=== PATIENT | male | born 1960 | race Caucasian/White ===

== ENCOUNTER 2016-07-05 12:20 | Emergency (ER) | payer BC ==
[2016-07-05 12:20] VITALS: BMI 43.5
[2016-07-05 12:39] VITALS: TEMP 98.6
--- NOTE | 2016-07-05 13:40 | ED PDOC ---
Arrival/HPI - General Chief Complaint: Back Pain Time Seen by Provider: 07/05/16 12:46 Historian: Patient - History of Present Illness Narrative History of Present Illness (Text): 07/05/16 13:38 55 year old male presents to the emergency department with rib and sternal pain on palpation after fall 2 weeks ago. Patient states he fell forward in the snow. He reports he was seen at [facility] [place] but has not followed up with his PMD. States pain is worst with palpation. Denies exertional pain, denies cp/sob/lombardi. Past Medical History - Infectious Disease Hx of Infectious Diseases: None - Tetanus Immunization Tetanus Immunization: Unknown - Cardiac Hx Cardiac Disorders: Yes Hx Hypertension: Yes - Pulmonary Hx Respiratory Disorders: Yes Hx Chronic Obstructive Pulmonary Disease (COPD): Yes - Neurological Hx Neurological Disorder: No - HEENT Hx HEENT Disorder: No - Renal Hx Renal Disorder: No - Endocrine/Metabolic Hx Endocrine Disorders: No - Hematological/Oncological Hx Blood Disorders: No - Integumentary Hx Dermatological Disorder: Yes (TATTOOS) - Musculoskeletal/Rheumatological Hx Musculoskeletal Disorders: Yes Hx Arthritis: Yes - Gastrointestinal Hx Gastrointestinal Disorders: Yes Other/Comment: CONSTIPATION - Genitourinary/Gynecological Hx Genitourinary Disorders: No - Psychiatric Hx Psychophysiologic Disorder: Yes Hx Anxiety: Yes Hx Depression: Yes Hx Substance Use: No (pt denies) Other/Comment: OBESITY - Surgical History Hx Appendectomy: Yes Other/Comment: pituitary tumor removal - Anesthesia Hx Anesthesia: Yes Hx Anesthesia Reactions: No Hx Malignant Hyperthermia: No - Suicidal Assessment Feels Threatened In Home Enviroment: No Family/Social History Smoking Status: Current Some Days Smoker Hx Alcohol Use: No (pt denies) Hx Substance Use: No (pt denies) Hx Substance Use Treatment: No Allergies/Home Meds Allergies/Adverse Reactions: Allergies No Known Allergies Allergy (Verified 07/05/16 12:39) Home Medications: Home Meds Medication Instructions Recorded Confirmed oxyCODONE [oxyCONTIN Extended 80 mg PO TID 06/11/16 07/05/16 Release Tab] Review of Systems - Physician Review All systems were reviewed & negative as marked: Yes Physical Exam - Physical Exam Narrative Physical Exam (Text): - Review of Systems Constitutional: Normal. absent: Fatigue, Weight Change, Fevers Eyes: Normal ENT: denies sore throat, denies tristhmus Respiratory: Normal. absent: SOB, Cough, Sputum Cardiovascular: absent: Chest Pain, Palpitations, Syncope Gastrointestinal: Normal. absent: Abdominal Pain, Diarrhea, Nausea, Vomiting Genitourinary: Normal. absent: Dysuria, Frequency, Hematuria Musculoskeletal: Normal. absent: Arthralgias, Back Pain, Neck Pain Skin: no rashes, no erythema Neurological: absent: Focal Weakness Endocrine: Normal Hemo/Lymphatic: Normal Psychiatric: No suicidal or homicidal ideations Physical exam Patient appears age appropriate in no distress, speaking full sentences without difficulty - Systems Exam Head: Present: Atraumatic, Normocephalic Pupils: Present: PERRL Extroacular Muscles: Present: EOMI Conjunctiva: Present: Normal Mouth: Present: Moist Mucous Membranes Neck: Present: Normal Range of Motion. No: MIDLINE TENDERNESS, Paraspinal Tenderness Respiratory/Chest: Present: Clear to Auscultation, Good Air Exchange. Sternal and ant. rib point tenderness. pain quality reproduced with palpation. No: Respiratory Distress, Accessory Muscle Use, Tachypneic Cardiovascular: Present: Regular Rate and Rhythm, Normal S1, S2, Peripheal Pulses Present. No: Murmurs Abdomen: Present: Normal Bowel Sounds. No: Tenderness, Distention, Peritoneal Signs, Rebound, Guarding Back: Present: Normal Inspection. No: Midline Tenderness, Paraspinal Tenderness Upper Extremity: Present: Normal Inspection. No: Cyanosis, Edema Lower Extremity: Present: Normal Inspection. No: Edema Neurological: Present: GCS=15, Speech Normal, cranial nerves II through XII fully intact with no cerebellar abnormality, neurosensory fully intact. No focal neurological deficits. Skin: Present: Warm, Dry, Normal Color. No: Rashes Lymphatic: Present: OX3, NI, NC Psychiatric: Present: Alert, Oriented x 3, Normal Insight, Normal Concentration Vital Signs Reviewed: Yes Vital Signs Temp Pulse Resp BP Pulse Ox 07/05/16 12:35 98.6 F 105 H 16 113/84 96 Temperature: Afebrile Blood Pressure: Normal Pulse: Tachycardic Respiratory Rate: Normal Appearance: Positive for: Well-Appearing Pain Distress: None Mental Status: Positive for: Alert and Oriented X 3 Medical Decision Making ED Course and Treatment: 07/05/16 14:08 55yo male reproducible anterior rib pain x2 weeks after a mechanical fall. pain meds and xrays ordered pt states he took mult pain meds earlier today, appears clinically sober. pt states he drove. He was instructed not to drive today and to obtain a ride home. Pt voiced understanding. 07/05/16 14:15 CXR w/Ribs FINDINGS: Several minimally displaced rib fractures are seen involving the left 6, 7th and 8th ribs. This is superimposed on old fracture deformities of the 5th and 6th ribs. The right side is unremarkable. There is no evidence of pneumothorax IMPRESSION: Fractures of the left 6 7th and 8th ribs. No pneumothorax 07/05/16 15:22 patient states that he an incentive spirometer from previous ED visit pt denies any pain at this time states he has oxy sharla home and also has refills pt again instructed not to drive home pt states he is waiting for his to pick him up patient ambulated in the ER without difficulty. tolerating PO. Pt states he understands to return to the ER right away for new or worsening symptoms or for inability to f/u with PMD or specialist as instructed. Patient states that he fully agrees with and understands discharge instructions. States that he agrees with the plan and disposition. Verbalized and repeated discharge instructions and plan. I have given the patient opportunity to ask any additional questions. - RAD Interpretation Radiology Orders: 07/05/16 13:02 RIBS BILATERAL W/PA CHEST [RAD] Stat - Medication Orders Current Medication Orders: Discontinued Medications Ketorolac Tromethamine (Toradol) 30 mg IM STAT STA Stop: 07/05/16 13:03 Last Admin: 07/05/16 13:20 Dose: 30 MG IM Administration Charges Document 07/05/16 13:20 SE (Rec: 07/05/16 13:20 SE [id number]) Injection Site MAR Injection Site Left Arm Charges for Administration # of IM Administrations 1 Disposition/Present on Arrival - Present on Arrival Any Indicators Present on Arrival: No History of DVT/PE: No History of Uncontrolled Diabetes: No Urinary Catheter: No History of Decub. Ulcer: No History Surgical Site Infection Following: None - Disposition Have Diagnosis and Disposition been Completed?: Yes Diagnosis: Rib fractures Disposition: HOME/ ROUTINE Disposition Time: 15:24 Patient Plan: Discharge Condition: GOOD Discharge Instructions (ExitCare): Rib Fracture (ED) Additional Instructions: PLEASE DO NOT DRIVE OR OPERATE MACHINERY WHILE TAKING YOUR MEDICATIONS PLEASE RETURN TO THE EMERGENCY DEPARTMENT FOR NEW OR WORSENING SYMPTOMS. RETURN RIGHT AWAY IF YOU CANNOT FOLLOW UP WITH YOUR PRIMARY CARE DOCTOR, CLINIC, OR SPECIALIST IN 1-2 DAYS. Referrals: Scott Alcala MD [Primary Care Provider] - Follow up with primary Forms: WORK NOTE
--- NOTE | 2016-07-05 14:13 | RAD ---
PROCEDURE: Bilateral ribs and chest HISTORY: rib injury COMPARISON: TECHNIQUE: Multiple views FINDINGS: Several minimally displaced rib fractures are seen involving the left 6, 7th and 8th ribs. This is superimposed on old fracture deformities of the 5th and 6th ribs. The right side is unremarkable. There is no evidence of pneumothorax IMPRESSION: Fractures of the left 6 7th and 8th ribs. No pneumothorax
[2016-07-05 15:27] VITALS: BP 123/78; PULSE 97; RESP 18; O2SAT 99
== END 2016-07-05 16:27 | disposition left against medical advice (07) ==
LOC: ED 12:20
DX: S22.42XA Multiple fractures of ribs, left side, initial encounter for closed fracture (principal); W00.0XXA Fall on same level due to ice and snow, initial encounter
CPT/HCPCS: 71111; 96372; 99284; J1885